=== PATIENT | male | born 1950 | race Caucasian/White ===

== ENCOUNTER 2016-12-27 03:37 | Emergency (ER) | payer MEDICARE, OTHER ==
--- NOTE | ~2016-12-27 | ER ---
PATIENT'S NAME: ASHIA PEÑA [facility] AGE: 66 Y [address] ROOM: [place] [id number] LOCATION: [facility] ADMIT DATE: 12/27/2016 ER/Outpatient Report DISCHARGE DATE: FAMILY PHYSICIAN: Peter Durham MD ATTENDING PHYSICIAN: Kenji Garcia Admission date and time are documented on the medical record. I saw the patient at 0350 hours. CHIEF COMPLAINT: Right flank pain radiating around to the right groin. HISTORY OF PRESENT ILLNESS: The patient is a 66-year-old male, who around 2300 hours last night, developed some right flank pain, started to move down his right flank, and then radiating to his right groin. He had accompanying nausea, but no vomiting. He had some dysuria. Pain was a 10/10, and got to the point where it was intolerable, so he came to the Emergency Room for evaluation. By history, the patient has had several episodes similar to this in his past kidney stones. No chest pain or shortness of breath. No back pain. No lightheadedness, dizziness, syncope, or near syncope. No headache; eyes, ears, nose, throat, neck, or spine pain. No fall or trauma. No recent colds, coughs, flus, fever, chills, or sweats. No diarrhea. No joint or muscle swelling, redness, or pain. No skin eruptions or rash. No neuro changes, psych issues, or endocrine problems. HOME MEDICATIONS: None. ALLERGIES: NONE. SOCIAL HISTORY: Non-smoker and non-drinker. SIGNIFICANT PAST MEDICAL HISTORY: 1. Nephrolithiasis. 2. Prostate cancer. OPERATIONS: 1. Right shoulder surgery. 2. Left shoulder surgery. 3. Cholecystectomy. 4. Back surgery. 5. Prostate surgery. PATIENT'S NAME: ASHIA PEÑA [facility] AGE: 66 Y [address] ROOM: [place] [address] LOCATION: [facility] ADMIT DATE: 12/27/2016 ER/Outpatient Report DISCHARGE DATE: FAMILY PHYSICIAN: Peter Durham MD ATTENDING PHYSICIAN: Kenji Garcia REVIEW OF SYSTEMS: All systems were reviewed by me and are negative, with the exception of those discussed in the history of present illness. PHYSICAL EXAMINATION: VITAL SIGNS: Pulse was 58 and regular, respirations were 16, blood pressure was 174/101, and O2 saturation on room air was 94%. HEENT: Negative. LUNGS: Clear. HEART: Regular. ABDOMEN: Soft. Some right flank tenderness to palpation. Bowel tones were present. No organomegaly or abnormal masses were palpable. No true CVA tenderness. EXTREMITIES: Intact. NEUROVASCULAR: Intact. SKIN: Clear. No skin eruptions or rash. LABORATORY DATA: White count was 8600, 65 segs, 22 lymphs, 9 monos, 3 eos, 1 baso, hemoglobin is 15.1 with hematocrit of 45.0, and platelet count was 250,000. Urine showed 0 to 2 whites, 20 to 50 reds, 0 to 2 epithelial cells, negative bacteria, 3+ mucus, 1+ amorphous material per high-powered field, and nitrites were negative. CMS was normal except for an elevated chloride of 111 and elevated glucose of 118. DIAGNOSTIC STUDIES: I did do a CT scan of the abdomen and pelvis with renal stone protocol. CT scan showed a 4.1-mm distal right ureteral stone, right at the UVJ with mild- to-moderate right hydronephrosis. CT scan was read by Radiology, see dictated transcribed report. EMERGENCY DEPARTMENT COURSE: I did start the patient on IV normal saline and fluids. We gave him IV Zofran for nausea and vomiting. Gave him Dilaudid, Toradol, and Flomax for pain. IMPRESSION: A 4-mm distal left ureteral stone at the ureterovesicular junction, with mild- to-moderate right hydronephrosis. PLAN: The patient was dismissed home from the Emergency Department. Observation. Activity as tolerated. Fluids and diet as tolerated. [place] 10/325 as needed for pain #24. Zofran 4 mg ODT as needed for nausea and vomiting. Flomax 0.4 mg one orally daily, #7. Strain urine. Follow up with personal physician in PATIENT'S NAME: ASHIA PEÑA [facility] AGE: 66 Y [address] ROOM: [place], [place] [address] LOCATION: ED ADMIT DATE: 12/27/2016 ER/Outpatient Report DISCHARGE DATE: FAMILY PHYSICIAN: Peter Durham MD ATTENDING PHYSICIAN: Kenji Garcia 7 to 10 days for repeat urinalysis or sooner if needed. Discussion was ensued with the patient concerning my findings and recommendation, he understands. MD CORY EVANS/ediel /[id number] d: 12/27/16 0530 t: 12/27/16 1809, OUTPATIENT REPORT
[2016-12-27 04:05] LABS: BILIRUBIN URINE NEGATIVE (NEGATIVE); BLOOD URINE 150 /UL (NEGATIVE); COLOR URINE YELLOW (YELLOW); GLUCOSE URINE NEGATIVE (NEGATIVE); KETONE URINE NEGATIVE (NEGATIVE); LEUKOCYTES URINE NEGATIVE /UL (NEGATIVE); NITRITE URINE NEGATIVE (NEGATIVE); PROTEIN URINE 15 mg/dL (NEGATIVE); TURBIDITY URINE CLEAR (CLEAR); UROBILINOGEN URINE NORMAL (NORMAL)
[2016-12-27 04:06] LABS: BASOPHIL # 0.1 K/uL (0.0-0.2); BASOPHIL % 0.8 %; EOSINOPHIL # 0.2 K/uL (0.0-0.5); EOSINOPHIL % 2.6 %; HEMOGLOBIN 15.1 g/dL (11.0-16.0); IMMATURE GRANULOCYTE % 0.2 %; LYMPHOCYTE # 1.9 K/uL (0.8-4.0); LYMPHOCYTE % 22.4 %; MCH 29.2 pg (27.0-34.0); MCHC 33.6 gm/dL (32.0-36.5); MONOCYTE # 0.8 K/uL (0.0-1.0); MONOCYTE % 9.3 %; NEUTROPHIL # (ANC) 5.6 K/uL (1.4-9.0); NEUTROPHIL % 64.7 %; NRBC % 0 /100WBC (0-0.00); PLATELET COUNT 250 K/uL (150-450); RBC 5.17 M/uL (3.50-5.50); RDW-CV 12.9 % (11.9-14.6); WBC 8.6 K/uL (4.0-11.0)
[2016-12-27 04:11] LABS: RBC URINE 20-50 #/HPF (NEGATIVE); WBC URINE 0-2 #/HPF (NEGATIVE)
[2016-12-27 04:12] LABS: AMORPHOUS URINE 1+ (NEGATIVE); BACTERIA URINE NEGATIVE (NEGATIVE); EPITHELIAL URINE 0-2 #/HPF (NEGATIVE); MUCUS URINE 3+ (NEGATIVE)
[2016-12-27 04:20] LABS: ALBUMIN 3.8 gm/dL (3.5-5.0); ALK PHOS 95 IU/L (33-138); ALT 39 IU/L (12-78); ANION GAP 13.2 (10.0-19.0); AST 32 IU/L (10-40); BLOOD UREA NITROGEN 17 mg/dL (6-24); CALCIUM 9.3 mg/dL (8.5-10.5); CHLORIDE 111 mMol/L (96-110); CO2 22 mMol/L (22-32); CREATININE 1.1 mg/dL (0.6-1.3); ESTIMATED GFR (MDRD EQUATION) > 60; POTASSIUM 4.2 mMol/L (3.7-5.1); SODIUM 142 mMol/L (135-145); TOTAL BILIRUBIN 0.6 mg/dL (0.0-1.5); TOTAL PROTEIN 7.6 g/dL (6.0-8.4)
== END 2016-12-27 04:47 | disposition disaster alternative care site (69) ==
LOC: GMED 03:37
PROVIDERS: Emergency Medicine
DX: N13.2 Hydronephrosis with renal and ureteral calculous obstruction (principal); Z85.46 Personal history of malignant neoplasm of prostate; Z90.49 Acquired absence of other specified parts of digestive tract; Z98.890 Other specified postprocedural states
CPT/HCPCS: J1170; J1885; J2405; J7030